=== PATIENT | female | born 1950 | race Caucasian/White ===

== ENCOUNTER 2021-04-30 16:33 | Emergency (ER) | payer MEDICARE, BC ==
[2021-04-30] MEDS ORDERED: HYDROmorphone 1 MG/ML CARPUJECT IM STA (17:53)
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
[2021-04-30] MEDS ORDERED: HYDROmorphone 1 MG/ML CARPUJECT IVP STA (18:46)
[2021-04-30 19:05] LABS: BASOPHILS % (AUTO) 0.3 %; EOSINOPHILS % (AUTO) 0.1 %; HCT - HEMATOCRIT 23.7 % (37.0-47.0); HGB - HEMOGLOBIN 7.8 g/dL (12.0-16.0); LYMPHOCYTES # (AUTO) 0.9 10^3/uL (1.5-3.5); LYMPHOCYTES % (AUTO) 7.1 %; MEAN CORPUSCULAR HEMOGLOBIN 34.2 pg (27.0-31.0); MEAN CORPUSCULAR HGB CONC 32.9 g/dL (32.0-36.0); MEAN CORPUSCULAR VOLUME 103.9 fL (81.0-99.0); MEAN PLATELET VOLUME 8.5 fL (7.9-10.8); MONOCYTES # (AUTO) 0.8 10^3/uL (0.0-1.0); MONOCYTES % (AUTO) 6.2 %; NEUTROPHILS # (AUTO) 11.2 10^3/uL (1.5-6.6); NEUTROPHILS % (AUTO) 85.8 %; PLT - PLATELET COUNT 478 10^3/uL (130-450); RED BLOOD COUNT 2.28 10^6/uL (4.20-5.40); RED CELL DISTRIBUTION WIDTH 17.9 % (12.0-15.0)
[2021-04-30 19:18] LABS: ALBUMIN 3.5 g/dL (3.2-5.5); ALBUMIN/GLOBULIN RATIO 1.4 (1.0-2.2); BILIRUBIN,TOTAL 1.7 mg/dL (0.2-1.0); CALCIUM 8.8 mg/dL (8.5-10.3); CREATININE 0.7 mg/dL (0.4-1.0); POTASSIUM 3.7 mmol/L (3.5-5.0)
--- NOTE | 2021-04-30 20:34 | Ultrasound Report ---
PROCEDURE: Duplex Ext Veins Bilateral INDICATIONS: Leg pain. ORIF. Rule out DVT. TECHNIQUE: Real-time imaging, as well as color and pulse Doppler interrogation, were performed of the deep veins of both legs from the inguinal ligament to the popliteal fossa. COMPARISON: CT pelvis without contrast today. FINDINGS: The deep veins are normally compressible, and free of intraluminal thrombus. Color and pu lse Doppler demonstrate normal phasic intravascular flow. There is normal augmentation response to d istal compression maneuver. Visualized calf veins are patent. Right popliteal fossa cyst measuring 5.7 x 4.6 x 3.2 cm. Subcutaneous edema in the right calf. Left popliteal fossa cyst measuring 3.8 x 2.2 x 1.5 cm. Subcutaneous edema on the left calf. IMPRESSION: No lower extremity DVT in either leg. Bilateral Morales's cysts, right greater than left. Reviewed by: Ron Giles MD on 04/30/2021 8:33 PM PDT Approved by: Ron Giles MD on 04/30/2021 8:33 PM PDT Station ID: [id number]
--- NOTE | 2021-04-30 20:48 | CT Report ---
PROCEDURE: PELVIS WO INDICATIONS: pain after ORIF TECHNIQUE: Noncontrast 3 mm axial sections acquired through the bony pelvis, with coronal and sagittal reformatt ing. For radiation dose reduction, the following was used: automated exposure control, adjustment of mA and/or kV according to patient size. COMPARISON: Same day radiographs the pelvis. FINDINGS: Image quality: Excellent. Bones: Fracture of the left sacrum. Two screws transversing the left iliac and sacrum. Comminuted pu bic rami fractures. Superior pubic rami screws. Inferior pubic rami fractures appears chronic. No edgar picious lesion. Bones are osteopenic. Soft tissues: Fluid density adjacent to the left greater trochanter. Irregular fluid density at the left pubic symphysis. Vascular calcifications. Trace stranding in the left pelvis. No large hematoma. Diverticulosis. Uterus is absent. Symmetric enlargement of the left gluteus musculature. Intramuscul ar increased density, (). Left lateral hip subcutaneous fat density, (06/22). IMPRESSION: 1. Comminuted superior pubic rami fractures are suspected to be acute. There is a small adjacent adonis arlyn. Suspect acute fractures. 2. Prior screw fixation at the superior pubic rami and left SI joint. Prior left sacral and superior/ inferior pubic rami fractures. 3. Left gluteus intermuscular hematoma. Small hematoma adjacent to the greater trochanter or bursal f luid collection. Hematoma at the level of the left iliac wing. Comparison with prior imaging would be helpful to assess the acuity of the additional identified frac tures. Reviewed by: Ron Giles MD on 04/30/2021 8:46 PM PDT Approved by: Ron Giles MD on 04/30/2021 8:46 PM PDT Station ID: [id number]
[2021-04-30 21:42] VITALS: BP 138/88
[2021-04-30] MEDS ORDERED: ONDANSETRON ODT 4 MG TABLET TL STA (22:00)
== END 2021-04-30 22:20 | disposition home or self-care (01) ==
LOC: ED 16:33
DX: M25.552 Pain in left hip (principal); S30.0XXA Contusion of lower back and pelvis, initial encounter; S70.12XA Contusion of left thigh, initial encounter; V49.9XXA Car occupant (driver) (passenger) injured in unspecified traffic accident, initial encounter; S32.810S Multiple fractures of pelvis with stable disruption of pelvic ring, sequela; V49.9XXS Car occupant (driver) (passenger) injured in unspecified traffic accident, sequela
CPT/HCPCS: 36415; 72192; 73522; 80053; 83690; 85025; 93970; 96372; 96374; 99284; J1170; Q0162